=== PATIENT | male | born 1960 | race Caucasian/White ===

== ENCOUNTER 2021-12-20 07:38 | Outpatient (REF) | payer OTHER, SELFPAY ==
[2021-12-20 08:15] LABS: MANUAL DIFF FLAG NO
[2021-12-20 08:45] LABS: Basophils Percent Auto 0.6 % (0-2); Eosinophils Absolute Auto 0.1 X10*3/uL (0.0-0.4); Eosinophils Percent Auto 1.5 % (0-4); Hematocrit 39.7 % (42.0-52.0); Hemoglobin 13.4 g/dl (14.0-18.0); Imm Gran Abs Auto 0.02 X10*3/uL (0.00-0.03); Imm Gran Pct Auto 0.3 % (0.0-0.4); Lymphocytes Absolute Auto 2.6 X10*3/uL (1.2-4.9); Lymphocytes Percent Auto 38.1 % (20-40); Mean Corpuscular HGB Conc 33.8 g/dl (31.0-36.0); Mean Corpuscular Hemoglobin 30.6 pg (27.0-33.0); Mean Corpuscular Volume 90.6 fL (80.0-98.0); Mean Platelet Volume 9.9 fL (9.4-12.4); Monocytes Absolute Auto 0.8 X10*3/uL (0.1-1.2); Monocytes Percent Auto 11.3 % (2-11); Neutrophils Absolute Auto 3.3 x10*3/uL (2.0-8.3); Neutrophils Percent Auto 48.2 % (45-73); Platelet Count 304 X10*3/uL (160-400); Red Blood Count 4.38 X10*6/uL (4.60-5.80); Red Cell Distribution Width 13.1 % (11.0-16.0); White Blood Count 6.7 X10*3/uL (4.8-10.8)
[2021-12-20 09:10] LABS: Alanine Aminotransferase 21 U/L (0-40); Albumin Level 4.2 g/dL (3.5-5.0); Alkaline Phosphatase 67 U/L (39-117); Anion Gap 12 (12-20); Aspartate Amino Transferase 18 U/L (5-37); Bilirubin Total 0.9 mg/dL (0.0-1.0); Blood Urea Nitrogen 14 mg/dL (9-16); Calcium 9.2 mg/dL (8.4-10.2); Carbon Dioxide 26 mmol/L (22-29); Chloride 106 mmol/L (96-108); Cholesterol 195 mg/dL; Estimated Glomerular Filt Rate > 60; Glucose Fasting 101 mg/dL (60-99); HDL Cholesterol 58 mg/dL; LDL Cholesterol Calculated 116 mg/dl; Potassium 4.8 mmol/L (3.3-5.1); Sodium 139 mmol/L (135-145); Total Protein 7.1 g/dL (6.5-8.0); Triglycerides 107 mg/dL
[2021-12-20 09:32] LABS: Prostate Specific Antigen Scr 0.46 ng/mL (<0.05-4.0)
== END 2021-12-20 07:39 | disposition home or self-care (01) ==
LOC: HO.LAB 07:38
PROVIDERS: PCP Internal Medicine; Visit Provider Internal Medicine
DX: Z00.00 Encounter for general adult medical examination without abnormal findings (principal); Z12.5 Encounter for screening for malignant neoplasm of prostate
CPT/HCPCS: 36415; 80053; 80061; 84153; 85025

== ENCOUNTER 2024-12-11 09:57 | Outpatient (AMB) | payer OTHER, SELFPAY ==
--- NOTE | 2024-12-11 10:13 | MHC.PC.OV ---
Vital Signs 12/11/24 10:15 12/11/24 10:17 Height 5 ft 9 in Weight 92.986 kg BMI 30.3 BP 158/98 H Blood Pressure Location Lt brachial Position Sitting Respiration 16 Pulse 87 Pulse Source Pulse Oximeter Temp 97.6 F Temp Source Temporal Artery Scan Pulse Oximetry (%) 99 Oxygen Delivery Method Room Air Intake Visit Reasons: would like to get lab work up, etc. 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 He lives with his and 2 adult children and feels safe there. He works in construction. Does not always wear sunscreen. He is active at his job. Follows a healthy diet. Excessive alcohol intake. No drugs. No cigarettes. Newly dosed HTN- bp 170/96 on recheck AUD- drinking 3 beers on a daily basis. No history of withdrawal HLD- not on statin Concerns: New lesion on the scalp, present x6 months. Previously followed with [facility] Liu Health Maintenance: Overdue for colonoscopy Due for screening PSA Reviewed past medical, family, surgical, social history ROS: General: No fevers, malaise, unintentional weight loss HEENT: No blurred vision, diplopia. No sore throat, nasal congestion, rhinorrhea, sinus pain, ear pain. No hearing loss Neck - no adenopathy Cardiovascular: No chest pain, palpitations, or leg edema Respiratory: No shortness of breath, wheezing, cough GI: No dysphagia, odynophagia, globus sensation. No abdominal pain, nausea, vomiting, diarrhea, constipation, melena, hematochezia : No dysuria, hematuria, increased urinary frequency, decreased urinary output. No testicular swelling or pain. No penile discharge MSK: No myalgia, back pain, arthralgias Neuro: No headaches, weakness, paresthesias Psych: no depression/anxiery. No AH/VH. No SI/HI Skin: No rashes or lesions. see hpi EXAM: Constitutional - Awake and Alert, No apparent distress Eyes - PERRLA, EOMI. Anicteric Ears - external ears normal, canals clear, TMs intact and pearly polk with good cone of light Nose- septum midline, nares clear, no sinus tenderness Mouth/throat- mucosa moist, tongue and uvula midline, no erythema/edema or tonsillar adenopathy. Neck-trachea midline, thyroid symmetric without palpable nodules, no adenopathy Cardiovascular - S1S2, RRR, No edema Respiratory - Normal lung expansion, Normal respiratory effort, No respiratory distress, CTA bilaterally Gastrointestinal - NT / ND; +BS; No rebound or guarding - No CVA tenderness Extremities - no calf tenderness bilaterally, no swelling Musculoskeletal - Normal inspection, normal ROM Skin - Warm/Dry, no concerning lesions Neurological - Alert & oriented x3, CN II-XII in tact, 5/5 strength BUE and BLE, 2+ patellar reflexes, sensation intact Psychological - light brown irregularly-shaped lesion on the scalp PFSH Medical History (Updated 12/11/24 @ 10:47 by SALVADOR Reyna) Alcohol use disorder Olecranon bursitis HLD (hyperlipidemia) HTN (hypertension) Surgical History (Updated 11/16/24 @ 13:24 by Jaqueline Molina) History of colonoscopy (~09/04/11) Family History (Updated 12/11/24 @ 10:40 by SALVADOR Reyna) Other No significant family history Social History (Updated 12/11/24 @ 10:38 by SALVADOR Reyna) Alcohol intake: current Alcohol intake frequency: 3 or more drinks per day Patient Tobacco Use Status: Never used Tobacco e-Cigarette/Vaping Use: Never Used Questionnaire PHQ-9 Over the last 2 weeks, how often have you been bothered by any of the following problems? 1. Little interest or pleasure in doing things: not at all 2. Feeling down, depressed, or hopeless: not at all 3. Trouble falling or staying asleep, or sleeping too much: not at all 4. Feeling tired or having little energy: not at all 5. Poor appetite or overeating: not at all 6. Feeling bad about yourself - or that you are a failure or have let yourself or your family down: not at all 7. Trouble concentrating on things, such as reading the newspaper or watching television: not at all 8. Moving or speaking so slowly that other people could have noticed. Or the opposite - being so fidgety or restless that you have been moving around a lot more than usual: not at all 9. Thoughts that you would be better off or of hurting yourself in some way: not at all Total score: 0 Source: Developed by Drs. Hayes Norris, Radha Diego, Cruz Shields and colleagues, with an educational abelardo from [employer]. Thrive Questionnaire Date Thrive assessed: 12/11/24 I am a: Patient What is your living situation today?: I have a steady place to live Within the past 12 months, did the food you bought not last and you didn't have the money to get more?: Never true Within the past 12 months, did you worry whether your food would run out before you got money to buy more?: Never true Do you have trouble paying for medicines?: No Do you have trouble getting transportation to medical appointments?: No Do you have trouble paying your heating and electricity bill?: No Do you have trouble taking care of your child, family member or friend?: No Do you have trouble with day-to-day activities such as bathing, preparing meals, shopping, managing finances, etc.?: No Are you currently unemployed and looking for a job?: No Are you interested in more education?: No THRIVE Score: 0 AUDIT C Alcohol Use Questionnaire (AUDIT-C) 1. How often do you have a drink containing alcohol?: 4 or more times a week 2. How many drinks containing alcohol do you have on a typical day when you are drinking?: 1 or 2 Total Score: 4 HOMERO-7 AMB Questionnaire HOMERO-7 Date HOMERO - 7 assessed: 12/11/24 Feeling nervous, anxious, or on edge: 0 = Not at all Not being able to stop or control worryin = Not at all Worrying too much about different things: 0 = Not at all Trouble relaxin = Not at all Being so restless that it is hard to sit still: 0 = Not at all Becoming easily annoyed or irritable: 0 = Not at all Feeling afraid as if something awful might happen: 0 = Not at all Total HOMERO-7 score (0-4 normal; 5-9 mild; 10-14 moderate; 15-21 severe): 0 Source: Developed by Drs. Hayes Norris, Radha Diego, Cruz Shields and colleagues, with an educational abelardo from [employer]. Physical exam (Primary Care) Vital Signs: Last Vital Signs Temp 97.6 F 12/11/24 10:17 Pulse 87 12/11/24 10:17 Resp 16 12/11/24 10:17 BP 158/98 H 12/11/24 10:17 Pulse Ox 99 12/11/24 10:17 Oxygen Delivery Method Room Air 12/11/24 10:17 BMI result Body Mass Index 30.3 Tobacco/Smoking Status: Tobacco use Status Tobacco use date assessed 12/11/24 12/11/24 10:20 Patient Tobacco Use Status Never used Tobacco 12/11/24 10:38 e-Cigarette/Vaping Use Never Used 12/11/24 10:38 PHQ-9: PHQ-9 Score PHQ-9: Total score 0 12/11/24 13:46 Thrive Assessment: Date of Thrive Assessment Date Thrive assessed 12/11/24 12/11/24 11:13 Coding Level of Care Code Est Pt Prev Care 40-64y(81464) Diagnoses Routine medical exam Z00.00 Alcohol use disorder F10.90 HTN (hypertension) I10 HLD (hyperlipidemia) E78.5 Seborrheic keratosis L82.1 Assessment & Plan Assessment & Plan (1) Routine medical exam: Code(s): Z00.00 - Encounter for general adult medical examination without abnormal findings Plan: 64-year-old male presenting for annual exam. Plan as below (2) Alcohol use disorder: Code(s): F10.90 - Alcohol use, unspecified, uncomplicated Category: Medical Plan: Counseled on alcohol use. Added thiamine folic acid (3) HTN (hypertension): Code(s): I10 - Essential (primary) hypertension Category: Medical Plan: Uncontrolled on recheck. Initiate losartan 50 mg daily. Low-sodium diet. Weight loss efforts and recommended to decrease alcohol consumption (4) HLD (hyperlipidemia): Code(s): E78.5 - Hyperlipidemia, unspecified Category: Medical Plan: Lipid panel ordered. ASCVD risk score to be calculated pending results (5) Seborrheic keratosis: Code(s): L82.1 - Other seborrheic keratosis Category: Medical Plan: Question diagnosis. Referred to Dermatology Plan Routine screening labs as ordered below Continue with screening colonoscopies and PSA Continue following for annual skin exams and use sun protection Annual eye exams Wear seat belt in car Recommend regular exercise and healthy diet Follow up in 2-3 weeks for BP check Orders: Orders Basic Metabolic Panel Today Z00.00 - Encounter for general adult medical examination without abnormal findings Complete Blood Count Auto Diff Today Z00.00 - Encounter for general adult medical examination without abnormal findings Lipid Panel Today Z00.00 - Encounter for general adult medical examination without abnormal findings Prostate Specific Antigen Today Z00.00 - Encounter for general adult medical examination without abnormal findings LDL Cholesterol Direct Today Z00.00 - Encounter for general adult medical examination without abnormal findings IRON PROFILE Today Z00.00 - Encounter for general adult medical examination without abnormal findings Liver Panel Today Z00.00 - Encounter for general adult medical examination without abnormal findings Hemoglobin A1c Today Z00.00 - Encounter for general adult medical examination without abnormal findings Vitamin D 25-OH Total Today Z00.00 - Encounter for general adult medical examination without abnormal findings Referrals Dermatology Referral L82.1 - Other seborrheic keratosis, Z12.83 - Encounter for screening for malignant neoplasm of skin Gastroenterology Referral Z12.11 - Encounter for screening for malignant neoplasm of colon Medications: New losartan 50 mg PO DAILY 90 tabs 1RF folic acid 1 mg PO DAILY 90 tabs 1RF thiamine HCl (vitamin B1) 100 mg PO DAILY 90 caps 1RF
[2024-12-11 10:15] VITALS: BMI 30.3
[2024-12-11 10:17] VITALS: BP 158/98; PULSE 87; RESP 16; TEMP 36.4; O2SAT 99
--- OUTSIDE RECORDS SUMMARY | 2024-12-11 10:35 | XMS_ITS | Patient Health Record ---
Author Organization [facility] Address [address] [place] [address] Care Team Providers Care Field Superintendent Name Role Phone Daren Finley MD Primary Care Provider Hayes Chung Unavailable [phone] Reason For Referral No Information Medications Medication SIG (Take, Route, Fr equency, Duration) Notes Start Date End Date Status MoviPrep 100 GM as directed Orally 04/21/20110 05/2024 Active Problems Problem Type SNOMED Code ICD Code Onset Dates Problem Status W/U Status Risk Notes Problem Special screening for malignant neoplasms, colon (V76.51) Active confirmed Plan Of Treatment Future Test Test Name Order Date COLONOSCOPY 04/21/2011 Insurance Providers Payer Name Payer Address Payer Phone Subscriber Number Group Number Insured Name Patient Relationship to Insured Coverage Start Date Coverage End Date [facility] [address] [facility] [phone] [id number] DELMY SONI Self - patient is the insured Medical (General) History Medical History History ICD Code Denies AL,DM,CVA,Lung disease,renal dise ase
== END 2024-12-11 10:55 | disposition home or self-care (01) ==
LOC: HO.HMCHD 09:58
PROVIDERS: PCP Internal Medicine; Visit Provider Physician Assistant
DX: Z00.00 Encounter for general adult medical examination without abnormal findings (principal); F10.90 Alcohol use, unspecified, uncomplicated; I10 Essential (primary) hypertension; E78.5 Hyperlipidemia, unspecified; L82.1 Other seborrheic keratosis

== ENCOUNTER 2024-12-11 11:17 | Outpatient (REF) | payer OTHER, SELFPAY ==
[2024-12-11 13:08] LABS: MANUAL DIFF FLAG NO
[2024-12-11 13:14] LABS: Hematocrit 40.7 % (42.0-52.0); Hemoglobin 14.3 g/dl (14.0-18.0); Imm Gran Abs Auto 0.02 X10*3/uL (0.00-0.03); Imm Gran Pct Auto 0.3 % (0.0-0.4); Lymphocytes Absolute Auto 2.1 X10*3/uL (1.2-4.9); Mean Corpuscular HGB Conc 35.1 g/dl (31.0-36.0); Mean Corpuscular Hemoglobin 31.3 pg (27.0-33.0); Mean Corpuscular Volume 89.1 fL (80.0-98.0); NRBC Abs Auto 0.000 X10*3/uL (0.0-0.012); NRBC Pct Auto 0.0 /100WBC (0.0-0.2); Platelet Count 269 X10*3/uL (160-400); Red Blood Count 4.57 X10*6/uL (4.60-5.80); White Blood Count 8.0 X10*3/uL (4.8-10.8)
[2024-12-11 13:28] LABS: Hemoglobin A1C 130.7936 umol/L; Total Hemoglobin (HGBA1C) 3719.3815 umol/L
[2024-12-11 13:43] LABS: Alanine Aminotransferase 25 U/L (0-40); Albumin Level 4.6 g/dL (3.5-5.0); Alkaline Phosphatase 61 U/L (39-117); Anion Gap 13 (12-20); Aspartate Amino Transferase 24 U/L (5-37); Blood Urea Nitrogen 15 mg/dL (9-16); Calcium 9.2 mg/dL (8.4-10.2); Carbon Dioxide 25 mmol/L (22-29); Chloride 105 mmol/L (96-108); Cholesterol 220 mg/dL (<200); Estimated Glomerular Filt Rate > 60; HDL Cholesterol 64 mg/dL (>40); Iron 103 mcg/dL (45-160); Percent Iron Saturation 37 % (15-50); Potassium 4.2 mmol/L (3.3-5.1); Sodium 139 mmol/L (135-145); Total Iron Binding Capacity 278 mcg/dL (228-428); Total Protein 7.5 g/dL (6.5-8.0); Triglycerides 154 mg/dL (<150); Unsaturated Iron Binding 175 ug/dL
[2024-12-11 13:53] LABS: Prostate Specific Antigen 0.93 ng/mL (<0.05-4.0)
== END 2024-12-11 11:18 | disposition home or self-care (01) ==
LOC: HO.10HDL 11:17
PROVIDERS: Visit Provider Physician Assistant
DX: Z00.00 Encounter for general adult medical examination without abnormal findings (principal)
CPT/HCPCS: 36415; 80048; 80061; 80076; 82306; 83036; 83540; 83721; 84153; 85025

== ENCOUNTER 2025-02-19 07:49 | Outpatient (AMB) | payer OTHER, SELFPAY ==
--- NOTE | 2025-02-19 07:50 | MHC.PC.OV ---
Vital Signs 02/19/25 07:53 Height 5 ft 9 in Weight 205 lb BMI 30.3 BP 165/81 H Blood Pressure Location Rt brachial Position Sitting Respiration 18 Pulse 79 Pulse Source Pulse Oximeter Temp 98.3 F Pulse Oximetry (%) 99 Oxygen Delivery Method Room Air Intake Visit Reasons: BP Check Coordinator Of Library Services Required: No Accompanied by: Self / Same As Patient Allergies No Known Allergies Allergy (Verified 02/19/25 07:50) Tobacco use date assessed: 12/11/24 Dental Screening Dental Screen Date: 02/19/25 Did you have a dental visit in the last 12 months?: No Did you have a dental problem in the last 6 months where you did not have access to dental care?: No Was dental information given to patient?: Patient has dentist HPI HPI Comments History of Present Illness Details The patient is a 65-year-old male presenting with management of elevated blood pressure and dyslipidemia. He reports a history of high blood pressure, which has been discussed as asymptomatic but potentially damaging internally if not adequately controlled. The patient mentions feeling fine despite the high readings but has been informed of the possible consequences, including damage to kidneys, heart, and brain if left unmanaged. It is noted that anxiety and visits to the doctor's office may contribute to elevated readings. The patient is also being evaluated for dyslipidemia, with mentions of high cholesterol levels. The conversation revealed a reluctance to commence medication for cholesterol; however, risk assessments have shown a 9-10% chance of stroke or cardiac events, prompting consideration of statin therapy as part of preventive care. His history includes alcohol use, initially involving three beers a day but efforts have been noted towards reduction, with current consumption varying between none and up to three beers on certain days. Medical History: - Essential Hypertension - Dyslipidemia Medications: - Losartan for hypertension Family History: - Father was a smoker using a pipe regularly Social: - Alcohol consumption reduced from three beers per day to occasional intake - No history of tobacco use, secondhand exposure from father's smoking - Awareness and efforts toward reducing salt intake [facility] Medical History (Updated 02/19/25 @ 08:15 by Herbert Nova MD) Alcohol use disorder Olecranon bursitis HLD (hyperlipidemia) HTN (hypertension) Surgical History (Updated 11/16/24 @ 13:24 by Jaqueline Molina) History of colonoscopy (~09/04/11) Family History (Updated 12/11/24 @ 10:40 by SALVADOR Reyna) Other No significant family history Social History (Updated 12/11/24 @ 10:38 by SALVADOR Reyna) Housing: House Alcohol intake: current Alcohol intake frequency: 3 or more drinks per day Patient Tobacco Use Status: Never used Tobacco e-Cigarette/Vaping Use: Never Used service: No Current occupational status: employed 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 Hayes Norris, Radha Diego, Cruz Shields and colleagues, with an educational abelardo from [employer] Review of Systems Const Details: - Neurological: Denies headaches or dizziness - Respiratory: Denies shortness of breath - Cardiovascular: Denies chest pain - Gastrointestinal: Denies nausea or vomiting - Genitourinary: Denies issues with urination - General: Reports feeling fine All systems reviewed & are unremarkable except as reviewed in HPI and above Physical exam (Primary Care) Vital Signs: Last Vital Signs Temp 98.3 F 02/19/25 07:53 Pulse 79 02/19/25 07:53 Resp 18 02/19/25 07:53 BP 165/81 H 02/19/25 07:53 Pulse Ox 99 02/19/25 07:53 Oxygen Delivery Method Room Air 02/19/25 07:53 BMI result Body Mass Index 30.3 Tobacco/Smoking Status: Tobacco use Status Tobacco use date assessed 12/11/24 02/19/25 07:52 Patient Tobacco Use Status Never used Tobacco 02/19/25 07:52 e-Cigarette/Vaping Use Never Used 02/19/25 07:52 Thrive Assessment: Date of Thrive Assessment Date Thrive assessed 12/11/24 02/19/25 07:52 Const Other: General: +Alert and oriented, Well nourished, No acute distress. Eye: Pupils are equal, round and reactive to light, Intact accommodation, Extraocular movements are intact, Normal conjunctiva, Vision unchanged. HENT: Normocephalic, Atraumatic, Tympanic membranes are clear, Normal hearing, Oral mucosa is moist, No pharyngeal erythema, Ear canals patent. Respiratory: Lungs CTA bilaterally, No wheeze, Respirations are non-labored. Cardiovascular: Regular rate, Regular rhythm, S1 auscultated, S2 auscultated, No murmur, Good pulses equal in all extremities, Normal peripheral perfusion, No edema. Gastrointestinal: Soft, Non-tender, Non-distended, Normal bowel sounds, No organomegaly. Musculoskeletal: Normal range of motion, Normal strength, No tenderness, No swelling, No deformity, Normal gait. Integumentary: Warm, Dry, [place], Intact. Neurologic: Alert, Oriented, Normal sensory, Normal motor function, No focal defects, Cranial Nerves II-XII are grossly intact, Normal deep tendon reflexes. Psychiatric: Cooperative, Appropriate mood & affect, Normal judgment. Coding Level of Care Code Est Pt Level 4 (85290) Complex EM visit Add On G2211 Diagnoses Primary hypertension I10 Hypertension type: primary hypertension Other hyperlipidemia E78.49 Hyperlipidemia type: other hyperlipidemia Alcohol use disorder F10.90 Assessment & Plan Assessment & Plan (1) HTN (hypertension): Comment: - Remains elevated on losartan 50 - Initiate amlodipine 5 mg daily in conjunction with Losartan. - Home blood pressure monitoring advised with detailed logging for four weeks to evaluate the efficacy and need for adjustments. - Educated patient on signs of hypotension and the need to report symptomatic blood pressure changes. Code(s): I10 - Essential (primary) hypertension Category: Medical Qualifiers: Hypertension type: primary hypertension Qualified Code(s): I10 - Essential (primary) hypertension (2) HLD (hyperlipidemia): Comment: - Strongly advised initiation of atorvastatin 20mg QHS therapy due to significant cardiovascular risk. - Discussed potential for muscle aches and advised night-time dosing to mitigate side effects. Code(s): E78.5 - Hyperlipidemia, unspecified Category: Medical Qualifiers: Hyperlipidemia type: other hyperlipidemia Qualified Code(s): E78.49 - Other hyperlipidemia (3) Alcohol use disorder: Comment: - Recognized improvement in alcohol use and support for continued reduction. Code(s): F10.90 - Alcohol use, unspecified, uncomplicated Category: Medical Plan: Health Maintenance: - Discussed importance of colonoscopy screening and facilitated direct order for procedure without need for specialist referral. - Counseled on dietary adjustments to reduce sodium and processed foods intake. Patient was informed and verbally consented to the use of an ambient scribe for clinic note documentation during this visit. Plan During the consultation, I reviewed the importance of managing elevated blood pressure and cholesterol levels to prevent severe health consequences such as kidney damage, stroke, and heart disease. I discussed the rationale for adding amlodipine to losartan therapy for blood pressure management, along with home blood pressure monitoring to guide our treatment decisions. The patient was educated on recognizing signs of low blood pressure. Despite reluctance, I emphasized the necessity of starting atorvastatin due to calculated cardiovascular risk and the role of preventive measures in maintaining health. The patient was open to reducing alcohol intake and significant efforts have been made, which I recognized as progress. Future follow-ups and adjustments to therapy were planned based on home monitoring results and adherence to lifestyle modifications. Orders: Referrals Open Access Screening Colonoscopy Referral Z12.11 - Encounter for screening for malignant neoplasm of colon Medications: New amlodipine 5 mg PO DAILY 30 tabs 0RF atorvastatin (Lipitor) 20 mg PO BEDTIME 90 tabs 3RF 90 days Patient Instructions: - Take amlodipine 5 mg in the morning. - Continue losartan as prescribed. - Start atorvastatin at night and monitor for muscle aches. - Use a home blood pressure cuff to log readings for four weeks. - Pay attention to salt intake and processed foods. - Continue reduction of alcohol consumption. - Schedule a follow-up appointment in four weeks, bring blood pressure log. - If you experience muscle aches, headaches, or dizziness, contact the clinic. - Follow through with colonoscopy appointment as discussed.
--- OUTSIDE RECORDS SUMMARY | 2025-02-19 07:52 | XMS_ITS | Patient Health Record ---
Author Organization [facility] Address [address] [place] [address] Care Team Providers Care Clinical Laboratory Medical Director Name Role Phone MIKI MCDONOUGH Primary Care Provider Hayes De Oliveira Unavailable [phone] Reason For Referral No Information Medications Medication SIG (Take, Route, Fr equency, Duration) Notes Start Date End Date Status MoviPrep 100 GM as directed Orally 04/21/20110 05/2024 Active Problems Problem Type SNOMED Code ICD Code Onset Dates Problem Status W/U Status Risk Notes Problem Screening for malignant neoplasm of colon (602431064) Special screening for malignant neoplasms, colon (V76.51) Active confirmed Plan Of Treatment Future Test Test Name Order Date COLONOSCOPY 04/21/2011 Next Appt Details Provider Name:Hayes Saldivar Rell , 04/17/2025 11:10:00 AM, [address], [address], [place], [address], Insurance Providers Payer Name Payer Address Payer Phone Subscriber Number Group Number Insured Name Patient Relationship to Insured Coverage Start Date Coverage End Date [facility] [address] [place] [phone] [id number] DELMY SONI Self - patient is the insured Medical (General) History Medical History History ICD Code Denies MD,DM,CVA,Lung disease,renal dise ase
[2025-02-19 07:53] VITALS: BP 165/81; PULSE 79; RESP 18; TEMP 36.8; O2SAT 99; BMI 30.3
== END 2025-02-19 08:16 | disposition home or self-care (01) ==
LOC: HO.HMCHD 07:49
PROVIDERS: PCP Student in an Organized Health Care Education/Training Program; Visit Provider Student in an Organized Health Care Education/Training Program
DX: I10 Essential (primary) hypertension (principal); E78.49 Other hyperlipidemia; F10.90 Alcohol use, unspecified, uncomplicated

== ENCOUNTER 2025-03-26 07:48 | Outpatient (AMB) | payer OTHER, SELFPAY ==
[2025-03-26 07:48] VITALS: BP 140/86; PULSE 86; TEMP 36.6; O2SAT 99; BMI 30.1
--- NOTE | 2025-03-26 07:48 | A.OFFPC_ITS ---
Vital Signs 03/26/25 07:48 Height 5 ft 9 in Weight 204 lb 2 oz BMI 30.1 BP 140/86 H Blood Pressure Location Rt brachial Position Sitting Pulse 86 Pulse Source Pulse Oximeter Temp 97.9 F Temp Source Temporal Artery Scan Pulse Oximetry (%) 99 Oxygen Delivery Method Room Air Intake Visit Reasons: 1 month f/u bp Group Social Worker Required: No Accompanied by: Self / Same As Patient Allergies No Known Allergies Allergy (Verified 03/26/25 07:48) Medication List - Last Reconciled 03/26/25 by Herbert Nova MD amlodipine 5 mg PO DAILY atorvastatin (Lipitor) 20 mg PO BEDTIME 90 days cholecalciferol (vitamin D3) 25 mcg PO DAILY folic acid 1 mg PO DAILY losartan 50 mg PO DAILY thiamine HCl (vitamin B1) 100 mg PO DAILY Tobacco use date assessed: 03/26/25 Fall risk assessment: No Falls in past year Last assessed Fall Risk: 03/26/25 Dental Screening Dental Screen Date: 03/26/25 Did you have a dental visit in the last 12 months?: No Did you have a dental problem in the last 6 months where you did not have access to dental care?: No HPI HPI Comments History of Present Illness Details The patient is a 65-year-old male presenting for management of hypertension and hyperlipidemia. He reports checking his blood pressure at home, with readings in the upper 130s over high 70s to 80, and higher in the 140s over 80 when frustrated. The patient is only taking losartan for his blood pressure and has not picked up the prescribed amlodipine. Regarding his cholesterol, the patient has not picked up the prescribed atorvastatin 40 mg, stating he is not overly concerned with a total cholesterol of 220. He expresses a preference for managing his health through dietary adjustments, such as eating more fish and chicken, rather than taking multiple medications which he refers to as man-made chemicals. The patient has a history of prior alcohol use, for which he takes folic acid and thiamine. He reports current alcohol intake is minimal, such as one to two beers. He denies smoking. Medical History: - Hypertension - Hyperlipidemia - History of alcohol use Medications: - Losartan 50 mg for hypertension - Folic acid supplement - Thiamine supplement - Vitamin D supplement - Powdered B-complex vitamin mix Diagnostic Results: - Total cholesterol: 220 mg/dL - LDL cholesterol: 128 mg/dL - Home blood pressure: Readings in the u pper 130s/high 70s-80s. - In-office blood pressure: 164/88 mmHg. Social History: - Smoking Status: Denies smoking. - Alcohol Use: Reports a history of alco hol use. Currently drinks one to two beers occasionally. 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 - Nutritional Intake: Reports making eff orts to eat better, including more fish and chicken. [facility] Medical History Alcohol use disorder Olecranon bursitis HLD (hyperlipidemia) HTN (hypertension) Surgical History History of colonoscopy (~09/04/11) Family History (Updated 03/26/25 @ 07:59 by Franchesca Coughlin MA) Mother No problems noted. Father No problems noted. 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 1. Little interest or pleasure in doing things: not at all 2. Feeling down, depressed, or hopeless: not at all 3. Trouble falling or staying asleep, or sleeping too much: not at all 4. Feeling tired or having little energy: not at all 5. Poor appetite or overeating: not at all 6. Feeling bad about yourself - or that you are a failure or have let yourself or your family down: not at all 7. Trouble concentrating on things, such as reading the newspaper or watching television: not at all 8. Moving or speaking so slowly that other people could have noticed. Or the opposite - being so fidgety or restless that you have been moving around a lot more than usual: not at all 9. Thoughts that you would be better off or of hurting yourself in some way: not at all Total score: 0 Source: Developed by Drs. Hayes Norris, Radha Diego, Cruz Shields and colleagues, with an educational abelardo from [place]. Thrive Questionnaire Date Thrive assessed: 03/26/25 I am a: Patient Within the past 12 months, did the food you bought not last and you didn't have the money to get more?: Never true Within the past 12 months, did you worry whether your food would run out before you got money to buy more?: Never true Do you have trouble paying for medicines?: No Do you have trouble getting transportation to medical appointments?: No Do you have trouble paying your heating and electricity bill?: No Do you have trouble taking care of your child, family member or friend?: No Do you have trouble with day-to-day activities such as bathing, preparing meals, shopping, managing finances, etc.?: No Are you currently unemployed and looking for a job?: No Are you interested in more education?: No THRIVE Score: 0 AUDIT C Alcohol Use Questionnaire (AUDIT-C) 1. How often do you have a drink containing alcohol?: Monthly or less 2. How many drinks containing alcohol do you have on a typical day when you are drinking?: 1 or 2 3. How often do you have six or more drinks on one occasion?: Less than monthly Total Score: 2 HOMERO-7 AMB Questionnaire HOMERO-7 Date HOMERO - 7 assessed: 03/26/25 Feeling nervous, anxious, or on edge: 0 = Not at all Not being able to stop or control worryin = Not at all Worrying too much about different things: 0 = Not at all Trouble relaxin = Not at all Being so restless that it is hard to sit still: 0 = Not at all Becoming easily annoyed or irritable: 0 = Not at all Feeling afraid as if something awful might happen: 0 = Not at all Total HOMERO-7 score (0-4 normal; 5-9 mild; 10-14 moderate; 15-21 severe): 0 Source: Developed by Radha Ross Kurt Kroenke and colleagues, with an educational abelardo from [place]. Review of Systems Const All systems reviewed & are unremarkable except as noted in HPI and below Physical exam (Primary Care) Vital Signs: Last Vital Signs Temp 97.9 F 03/26/25 07:48 Pulse 86 03/26/25 07:48 BP 140/86 H 03/26/25 07:48 Pulse Ox 99 03/26/25 07:48 Oxygen Delivery Method Room Air 03/26/25 07:48 BMI result Body Mass Index 30.1 Tobacco/Smoking Status: Tobacco use Status Tobacco use date assessed 03/26/25 03/26/25 07:51 Patient Tobacco Use Status Never used Tobacco 03/26/25 07:51 e-Cigarette/Vaping Use Never Used 03/26/25 07:51 PHQ-9: PHQ-9 Score PHQ-9: Total score 0 03/26/25 07:51 Thrive Assessment: Date of Thrive Assessment Date Thrive assessed 03/26/25 03/26/25 07:51 Narrative General: Alert and oriented, Well nourished, No acute distress. Eye: Pupils are equal, round and reactive to light, Intact accommodation, Extraocular movements are intact, Normal conjunctiva, Vision unchanged. HENT: Normocephalic, Atraumatic, Tympanic membranes are clear, Normal hearing, Oral mucosa is moist, No pharyngeal erythema, Ear canals patent. Respiratory: Lungs CTA bilaterally, No wheeze, Respirations are non-labored. Cardiovascular: Regular rate, Regular rhythm, S1 auscultated, S2 auscultated, No murmur, Good pulses equal in all extremities, Normal peripheral perfusion, No edema. Gastrointestinal: Soft, Non-tender, Non-distended, Normal bowel sounds, No organomegaly. Musculoskeletal: Normal range of motion, Normal strength, No tenderness, No swelling, No deformity, Normal gait. Integumentary: Warm, Dry, [place], Intact. Neurologic: Alert, Oriented, Normal sensory, Normal motor function, No focal defects, Cranial Nerves II-XII are grossly intact, Normal deep tendon reflexes. Psychiatric: Cooperative, Appropriate mood & affect, Normal judgment. Coding Level of Care Code Est Pt Level 4 (04719) Complex EM visit Add On G2211 Diagnoses Primary hypertension I10 Hypertension type: primary hypertension Other hyperlipidemia E78.49 Hyperlipidemia type: other hyperlipidemia Assessment & Plan Assessment & Plan (1) HTN (hypertension): Comment: - The patient's hypertension is uncontrolled on losartan monotherapy, with in- office readings as high as 164/88 mmHg and elevated home readings. - The patient has been non-adherent with prescribed amlodipine. - The risks of heart disease and stroke were discussed. - The plan is to have the patient start amlodipine 5 mg daily in addition to his current regimen. - An alternative to increase losartan to 100 mg was discussed, but dual therapy is preferred. - The different mechanisms of action for losartan (ARB) and amlodipine (CCB) were explained. Code(s): I10 - Essential (primary) hypertension Category: Medical Qualifiers: Hypertension type: primary hypertension Qualified Code(s): I10 - Essential (primary) hypertension (2) HLD (hyperlipidemia): Comment: - The patient has an LDL of 128 mg/dL and has been non-adherent with prescribed atorvastatin 20 mg. His calculated 10-year cardiovascular risk is 15-13%. - The rationale for statin therapy to reduce this risk was explained. - The plan is for the patient to start atorvastatin 20 mg. - He was advised that the medication may be discontinued in the future if lifestyle modifications successfully lower his cholesterol levels. Code(s): E78.5 - Hyperlipidemia, unspecified Category: Medical Qualifiers: Hyperlipidemia type: other hyperlipidemia Qualified Code(s): E78.49 - Other hyperlipidemia Plan: Health Maintenance: - The patient's 10-year risk of a cardiovascular event (coronary artery disease, stroke, , or nonfatal NE) was calculated to be between 15% and 30%. - Discussed risk reduction through medication adherence for hypertension and hyperlipidemia. - Discussed lifestyle modifications including a low-salt diet and other dietary changes. - Patient was advised that if lifestyle changes effectively lower his blood pressure and cholesterol, medications could be reduced or discontinued. - Follow-up is scheduled in 3 months to reassess. Patient was informed and verbally consented to the use of an ambient scribe for clinic note documentation during this visit. Plan I had a detailed discussion with the patient regarding his uncontrolled hypertension and hyperlipidemia, as well as his non-adherence to prescribed amlodipine and atorvastatin. I explained that his 10-year risk of a major cardiovascular event is high, estimated at 15-30%. I addressed his concerns about taking medications, which he views as man-made chemicals, by explaining the different mechanisms of action for his prescribed drugs. I described how losartan works on the kidneys, amlodipine relaxes blood vessels, and atorvastatin helps remove harmful cholesterol. I emphasized that taking these three medications is a minimal intervention to significantly reduce his risk of a heart attack or stroke. I assured him that if he makes successful lifestyle changes, such as weight loss and a low-salt diet, we can re-evaluate and potentially discontinue the medications. The patient agreed to try taking the amlodipine 5 mg and atorvastatin. I advised him to continue monitoring his blood pressure at home and to follow up in 3 months. Medications: New amlodipine 5 mg PO DAILY 90 tabs 3RF Refilled losartan 50 mg PO DAILY 90 tabs 1RF Patient Instructions: - Please nut picker and start taking amlodipine 5 mg once daily for your high blood pressure. - Please nut picker and start taking the atorvastatin 40 mg for your high cholesterol. - Continue taking your losartan medication as you have been. - Keep checking your blood pressures at home sometimes. The goal is for the top number to be under 130. - Work on lifestyle changes like reducing salt in your diet. These changes can help lower your blood pressure and cholesterol, and may allow us to reduce your medications in the future. - If you run out of medications, you do not need to call the office. Just ask y our pharmacy to send us a request for a refill. - Please schedule a follow-up appointment to see us again in 3 months.
--- OUTSIDE RECORDS SUMMARY | 2025-03-26 07:50 | XMS_ITS | Patient Health Record ---
Author Organization [facility] Address [address] [place] [address] Care Team Providers Care Field Account Manager Name Role Phone MIKI MCDONOUGH Primary Care Provider Hayes De Oliveira Unavailable [phone] Reason For Referral No Information Medications Medication SIG (Take, Route, Fr equency, Duration) Notes Start Date End Date Status MoviPrep 100 GM as directed Orally 04/21/20110 05/2024 Active Problems Problem Type SNOMED Code ICD Code Onset Dates Problem Status W/U Status Risk Notes Problem Screening for malignant neoplasm of colon (438772092) Special screening for malignant neoplasms, colon (V76.51) Active confirmed Plan Of Treatment Future Test Test Name Order Date COLONOSCOPY 04/21/2011 Next Appt Details Provider Name:Hayes Saldivar Rell , 04/17/2025 11:10:00 AM, [address], [address], [place], [address], Insurance Providers Payer Name Payer Address Payer Phone Subscriber Number Group Number Insured Name Patient Relationship to Insured Coverage Start Date Coverage End Date [facility] [address] [place] [phone] [id number] DELMY SONI Self - patient is the insured Medical (General) History Medical History History ICD Code Denies PR,DM,CVA,Lung disease,renal dise ase
== END 2025-03-26 08:19 | disposition home or self-care (01) ==
LOC: HO.HMCHD 07:48
PROVIDERS: PCP Internal Medicine; Visit Provider Student in an Organized Health Care Education/Training Program
DX: I10 Essential (primary) hypertension (principal); E78.49 Other hyperlipidemia